=== PATIENT | female | born 1955 | race Two or more races ===

== ENCOUNTER 2018-03-12 23:26 | Inpatient (IN) | payer OTHER ==
[2018-03-12] MEDS ORDERED: NS 1,000 ML IV ONE (23:49)
[2018-03-12] MEDS ORDERED: ONDANSETRON 4 MG/2 ML VIAL IVP ONE (23:49)
[2018-03-12] MEDS ORDERED: fentaNYL 100 MCG/2 ML INJ IVP ONE (23:51)
--- NOTE | 2018-03-12 23:53 | EDPHY ---
General Time Seen by Provider: 03/12/18 23:49 Narrative: CLINICAL IMPRESSION: Small bowel obstruction ASSESSMENT/PLAN: Patient is a 62-year-old female with no significant medical history who presents to the emergency department with periumbilical pain, nausea, vomiting and diarrhea. Patient is afebrile, she is uncomfortable appearing however not toxic-appearing. Her abdomen was soft, nondistended with tenderness to palpation in the periumbilical region with mild voluntary guarding, well-healed midline incision inferior to the umbilicus with no appreciable hernia. CBC revealed leukocytosis of 12,000. Her vital signs were reviewed and there was no evidence of sepsis or serious bacterial illness. BMP grossly unremarkable. Lipase and hepatic panel grossly unremarkable. CT abdomen and pelvis revealed high-grade small-bowel obstruction with a small amount of free fluid in the pelvis. History and physical examination is most consistent with small-bowel obstruction. An NG tube was placed in the emergency department with approximately 200 cc of gastric contents removed, she was kept NPO and given IV fluids and pain control. On repeat examination the patient is more comfortable appearing, abdomen remained tender however no evidence of a surgical abdomen at this time. She remained hemodynamically stable. The patient will be admitted to the surgical service, I spoke directly with Dr. Childers who will be the admitting physician. DIFFERENTIAL DX: Abdominal pain including but not limited to appendicitis, cholecystitis, gastritis and urinary tract infection. ED COURSE: 2054: Case discussed with Dr. Bush CHIEF COMPLAINT: Abdominal pain, nausea, vomiting and diarrhea HPI: Patient is a 62-year-old female with no significant medical history and who takes no medications presents to the emergency department with intermittent and escalating иван umbilical abdominal pain, nausea, vomiting and diarrhea. Patient reports yesterday she started to develop some mid abdominal cramping, it has waxed and waned in intensity. Today she started to develop some associated nausea and emesis x3. She has felt chilled however no recorded fever. She also has a diarrhea, 4 episodes today without melena or hematochezia. Last episode of diarrhea just prior to arrival. Patient is status post remote lap helena, open appendectomy and open hysterectomy. Patient denies any chest pain, shortness of breath or hematemesis. She has no history of reflux. She denies any urinary symptoms to include dysuria, hematuria or increased frequency however does have a propensity to develop urinary tract infections. There has been no recent travel, she has been on no recent antibiotics. There are no recent sick contacts. Patient has never had a colonoscopy. PMH: Denies Pertinent Past Surgical History: Cholecystectomy, appendectomy, hysterectomy Family History: Not contributory Social History: Denies alcohol, drug use or cigarette smoking REVIEW OF SYSTEMS: All other systems negative Constitutional: Chills, decreased appetite. Eyes: No discharge, vision change ENT: No sore throat, congestion, ear pain. Cardiovascular: No chest pain, no palpitations. Respiratory: No cough, no shortness of breath. Gastrointestinal: Abdominal pain, nausea, vomiting and diarrhea. Genitourinary: No hematuria, dysuria, flank pain, pelvic pain. Musculoskeletal: No back pain, joint swelling, joint pain, myalgias. Skin: No rashes, color change. Neurological: No headache, dizziness, weakness. PHYSICAL EXAM: General Appearance: Patient is well-developed, she is very uncomfortable appearing however not toxic-appearing. HENT: Normocephalic, atraumatic. Bilateral external ears are normal. Bilateral tympanic membranes are normal with pearly vuong reflex. Nares are clear, mucosa is pink. Oropharynx is clear, mucosa mildly dry, uvula is midline. There is no tonsillar enlargement or exudate. The dentition is normal. Eyes: PERRLA, no acute vision change, nystagmus, swelling, discharge, pain or photosensitivity. Conjunctiva pink, no pallor or injection Neck: Supple, nontender, no lymphadenopathy, no midline pain, FROM, no meningismus. Respiratory: There are no retractions, lungs are clear to auscultation. Cardiac: Regular rate and rhythm, no murmurs or gallops. Gastrointestinal: Patient's abdomen is soft and nondistended. There is a well-healed incision inferior to the umbilicus into the suprapubic region with no specific associated tenderness to palpation, no appreciable hernia. Patient has tenderness to palpation in the generalized periumbilical region with mild voluntary guarding. Negative Rovsing's. Neurological: Alert and oriented x 3, CN 2-12 grossly intact, normal gait no ataxia, DTR's intact, normal sensation and strength Skin: Warm, dry, no rashes, no nodules on palpation. Musculoskeletal: Extremities are symmetrical, full range of motion, no tenderness, deformity, swelling, or erythema. Psychiatric: Patient is oriented X 3, there is no agitation. MEDICAL DECISION MAKING: Patient was seen independently. Secondary supervising physician at time of evaluation was Dr. Bush. Diagnosis: Small bowel obstruction. New, requires workup Summary: See Assessment and Plan for summary of ED visit Clinical lab tests: ordered / reviewed. Independent visualization of images, tracing, or specimens: Yes. Decision to obtain medical records or history from someone other than the patient: Yes, daughter Review / Summarize previous medical records: No Discussed patient with another provider: Yes, Dr. Bush, Dr. Childers. Patient Progress: Stable, admit. - Objective Vital Signs: Initial Vital Signs Temperature (C) 36.4 C 03/12/18 23:32 Heart Rate 86 03/12/18 23:32 Respiratory Rate 03/12/18 23:32 Blood Pressure 159/96 H 03/12/18 23:32 O2 Sat (%) 95 03/12/18 23:32 O2 Delivery Mode Room Air O2 (L/minute) 2 Allergies/Adverse Reactions: hydromorphone HCl [From Dilaudid] Allergy (Intermediate, Verified 10/09/12 09:27 ) Vomiting penicillin G [Penicillin G] Allergy (Intermediate, Verified 12/07/08 20:32) TACHYCARDIA, DIAPHORESIS Penicillins Allergy (Verified 09/25/14 01:24) Home Medications: Medication Instructions Recorded No Medications [No Meds] 10/08/12 Laboratory Results: Laboratory Results 03/12/18 23:40 03/12/18 23:40 03/12/18 03/12/18 23:40 23:40 WBC 11.88 10^3/uL H 10^3/uL (3.80-9.50) RBC 4.51 10^6/uL 10^6/uL (4.18-5.33) Hgb 14.5 g/dL g/dL (12.6-16.3) Hct 41.6 % % (38.0-47.0) MCV 92.2 fL fL (81.5-99.8) MCH 32.2 pg pg (27.9-34.1) MCHC 34.9 g/dL g/dL (32.4-36.7) RDW 13.1 % % (11.5-15.2) Plt Count 365 10^3/uL 10^3/uL (150-400) MPV 8.7 fL fL (8.7-11.7) Neut % (Auto) 76.7 % H % (39.3-74.2) Lymph % (Auto) 14.4 % L % (15.0-45.0) Wilkes % (Auto) 7.2 % % (4.5-13.0) Eos % (Auto) 1.1 % % (0.6-7.6) Baso % (Auto) 0.3 % % (0.3-1.7) Nucleat RBC Rel Count 0.0 % % (0.0-0.2) Absolute Neuts (auto) 9.12 10^3/uL H 10^3/uL (1.70-6.50) Absolute Lymphs (auto) 1.71 10^3/uL 10^3/uL (1.00-3.00) Absolute Monos (auto) 0.85 10^3/uL H 10^3/uL (0.30-0.80) Absolute Eos (auto) 0.13 10^3/uL 10^3/uL (0.03-0.40) Absolute Basos (auto) 0.04 10^3/uL 10^3/uL (0.02-0.10) Absolute Nucleated RBC 0.00 10^3/uL 10^3/uL (0-0.01) Immature Gran % 0.3 % % (0.0-1.1) Immature Gran # 0.03 10^3/uL 10^3/uL (0.00-0.10) Sodium 137 mEq/L mEq/L (135-145) Potassium 4.6 mEq/L mEq/L (3.5-5.2) Chloride 106 mEq/L mEq/L (97-110) Carbon Dioxide 22 mEq/l mEq/l (22-31) Anion Gap 9 mEq/L mEq/L (6-14) BUN 18 mg/dL mg/dL (7-23) Creatinine 1.0 mg/dL mg/dL (0.6-1.0) Estimated GFR 56 Glucose 138 mg/dL H mg/dL (70-100) Calcium 9.6 mg/dL mg/dL (8.5-10.4) Total Bilirubin 0.6 mg/dL mg/dL (0.1-1.4) Conjugated Bilirubin 0.2 mg/dL mg/dL (0.0-0.5) Unconjugated Bilirubin 0.4 mg/dL mg/dL (0.0-1.1) AST 20 IU/L IU/L (14-46) ALT 22 IU/L IU/L (9-52) Alkaline Phosphatase 78 IU/L IU/L (38-126) Total Protein 7.5 g/dL g/dL (6.3-8.2) Albumin 4.3 g/dL g/dL (3.5-5.0) Lipase 99 IU/L IU/L (23-300) Medications Given: Discontinued Medications Benzocaine (Hurricaine [place]) 1 g MM EDNOW ONE Stop: 03/13/18 01:03 Last Admin: 03/13/18 01:14 Dose: 1 spray Fentanyl (Sublimaze) 50 mcg IVP ONCE ONE Stop: 03/12/18 23:52 Last Admin: 03/13/18 00:02 Dose: 50 mcg Hydromorphone HCl (Dilaudid) 0.5 mg IVP EDNOW ONE Stop: 03/13/18 00:36 Last Admin: 03/13/18 00:37 Dose: 0.5 mg Sodium Chloride (Ns) 1,000 mls @ 0 mls/hr IV EDNOW ONE; Wide Open PRN Reason: Protocol Stop: 03/12/18 23:50 Last Admin: 03/13/18 00:02 Dose: 1,000 mls Lidocaine (Lidocaine 2% Viscous) 10 ml PO EDNOW ONE Stop: 03/13/18 01:04 Last Admin: 03/13/18 01:14 Dose: 10 ml Ondansetron HCl (Zofran) 4 mg IVP EDNOW ONE Stop: 03/12/18 23:50 Last Admin: 03/13/18 00:02 Dose: 4 mg Departure - Departure Disposition: [facility] Inpatient Acute Clinical Impression: Small bowel obstruction
[2018-03-12 23:58] LABS: PLATELET COUNT 365 10^3/uL (150-400)
[2018-03-13] MEDS ORDERED: IOPAMIDOL (ISOVUE 370) 100 ML BTL IV ONE (00:18)
[2018-03-13] MEDS ORDERED: HYDROmorphONE/DILAUDID 1 MG/ML INJ ONE (00:33)
[2018-03-13] MEDS ORDERED: HYDROmorphONE/DILAUDID 1 MG/ML INJ IVP ONE (00:35)
[2018-03-13] MEDS ORDERED: LIDOCAINE 2% JELLY 20 ML (UROJECT) ONE (00:53)
[2018-03-13] MEDS ORDERED: BENZOCAINE UNIT DOSE SPRAY HURRICAINE MM ONE (00:53)
[2018-03-13] MEDS ORDERED: BENZOCAINE 57 G CAN HURRICAINE MM ONE (01:02)
[2018-03-13] MEDS ORDERED: LIDOCAINE 2% VISCOUS 15 ML UDCUP PO ONE (01:03)
[2018-03-13] MEDS ORDERED: HYDROmorphONE/DILAUDID 2 MG/ML INJ IVP ONE (01:58)
[2018-03-13] MEDS ORDERED: GASTROVIEW 30 ML UNIT PO ONE ×2 (03:09→08:37)
[2018-03-13] MEDS: D5W NS W/ 20 KCl/L 1,000 ML IV SCH ×2 (03:12→10:43)
--- NOTE | 2018-03-13 03:14 | PDGENHP ---
History and Physical - Chief Complaint abdominal pain - History of Present Illness 62 y/o female with 2 day history of abdominal pain , diarrhea, nausea and vomiting. Her symptoms became worse this past evening and she came to the ED for evaluation. She had a CT scan that showed "bowel obstruction" and she was admitted for surgical consultation after an NGT was placed in the ED. She had similar symptoms just after Thanksgiving last year that were less severe and resolved spontaneously. History Information - Allergies/Home Medication List Allergies/Adverse Reactions: hydromorphone HCl [From Dilaudid] Allergy (Intermediate, Verified 10/09/12 09:27 ) Vomiting penicillin G [Penicillin G] Allergy (Intermediate, Verified 12/07/08 20:32) TACHYCARDIA, DIAPHORESIS Penicillins Allergy (Verified 09/25/14 01:24) Home Medications: No Medications [No Meds] 10/08/12 [Last Taken Unknown] I have personally reviewed and updated: family history, medical history, social history, surgical history - Past Medical History recurrent UTI Additional medical history: admitted twice in the past for pyelonephritis - Surgical History Reports: appendectomy (open as a child in [facility]), cancer surgery ( hysterectomy for cervical cancer), cholecystectomy (laparoscopic) - Family History Positive for: cancer (mother with cervical cancer) - Social History Smoking Status: Never smoked Alcohol Use: Rarely Drug Use: None Additional social history: here with daughter Review of Systems Review of Systems: Constitutional: Reports: recent illness Cardiac: Reports: no symptoms Respiratory: Reports: no symptoms Gastrointestinal: Reports: vomitting, abdominal pain, diarrhea, nausea Genitourinary: Reports: no symptoms Muscolosketal: Reports: no symptoms Physical Exam Physical Exam: Temp Pulse Resp BP Pulse Ox 36.8 C 61 16 129/94 H 93 03/13/18 02:44 03/13/18 02:44 03/13/18 02:44 03/13/18 02:44 03/13/18 02:44 O2 (L/minute) 2 Constitutional: uncomfortable (mildly anxious in pain) Eyes: anicteric sclera Ears, Nose, Mouth, Throat: moist mucous membranes, hearing normal Cardiovascular: regular rate and rhythym Respiratory: no respiratory distress, clear to auscultation Gastrointestinal: tenderness, distension, other (low midline incision without hernia, tympanitic to percussion, mild diffuse tenderness , hypoactive bowel sounds/No guarding/No rebound) Psychiatric: anxious Lymph, Heme, Immunologic: no cervical LAD, no supraclavicular LAD Lab Data & Imaging Review 03/12/18 23:40 03/12/18 23:40 WBC 11.88 10^3/uL (3.80-9.50) H 03/12/18 23:40 RBC 4.51 10^6/uL (4.18-5.33) 03/12/18 23:40 Hgb 14.5 g/dL (12.6-16.3) 03/12/18 23:40 Hct 41.6 % (38.0-47.0) 03/12/18 23:40 MCV 92.2 fL (81.5-99.8) 03/12/18 23:40 MCH 32.2 pg (27.9-34.1) 03/12/18 23:40 MCHC 34.9 g/dL (32.4-36.7) 03/12/18 23:40 RDW 13.1 % (11.5-15.2) 03/12/18 23:40 Plt Count 365 10^3/uL (150-400) 03/12/18 23:40 MPV 8.7 fL (8.7-11.7) 03/12/18 23:40 Neut % (Auto) 76.7 % (39.3-74.2) H 03/12/18 23:40 Lymph % (Auto) 14.4 % (15.0-45.0) L 03/12/18 23:40 Hyde % (Auto) 7.2 % (4.5-13.0) 03/12/18 23:40 Eos % (Auto) 1.1 % (0.6-7.6) 03/12/18 23:40 Baso % (Auto) 0.3 % (0.3-1.7) 03/12/18 23:40 Nucleat RBC Rel Count 0.0 % (0.0-0.2) 03/12/18 23:40 Absolute Neuts (auto) 9.12 10^3/uL (1.70-6.50) H 03/12/18 23:40 Absolute Lymphs (auto) 1.71 10^3/uL (1.00-3.00) 03/12/18 23:40 Absolute Monos (auto) 0.85 10^3/uL (0.30-0.80) H 03/12/18 23:40 Absolute Eos (auto) 0.13 10^3/uL (0.03-0.40) 03/12/18 23:40 Absolute Basos (auto) 0.04 10^3/uL (0.02-0.10) 03/12/18 23:40 Absolute Nucleated RBC 0.00 10^3/uL (0-0.01) 03/12/18 23:40 Immature Gran % 0.3 % (0.0-1.1) 03/12/18 23:40 Immature Gran # 0.03 10^3/uL (0.00-0.10) 03/12/18 23:40 Sodium 137 mEq/L (135-145) 03/12/18 23:40 Potassium 4.6 mEq/L (3.5-5.2) 03/12/18 23:40 Chloride 106 mEq/L (97-110) 03/12/18 23:40 Carbon Dioxide 22 mEq/l (22-31) 03/12/18 23:40 Anion Gap 9 mEq/L (6-14) 03/12/18 23:40 BUN 18 mg/dL (7-23) 03/12/18 23:40 Creatinine 1.0 mg/dL (0.6-1.0) 03/12/18 23:40 Estimated GFR 56 03/12/18 23:40 Glucose 138 mg/dL (70-100) H 03/12/18 23:40 Calcium 9.6 mg/dL (8.5-10.4) 03/12/18 23:40 Total Bilirubin 0.6 mg/dL (0.1-1.4) 03/12/18 23:40 Conjugated Bilirubin 0.2 mg/dL (0.0-0.5) 03/12/18 23:40 Unconjugated Bilirubin 0.4 mg/dL (0.0-1.1) 03/12/18 23:40 AST 20 IU/L (14-46) 03/12/18 23:40 ALT 22 IU/L (9-52) 03/12/18 23:40 Alkaline Phosphatase 78 IU/L (38-126) 03/12/18 23:40 Total Protein 7.5 g/dL (6.3-8.2) 03/12/18 23:40 Albumin 4.3 g/dL (3.5-5.0) 03/12/18 23:40 Lipase 99 IU/L (23-300) 03/12/18 23:40 Visualized and Interpreted imaging results: Yes Interpretation: reviewed CT: dilated loops of small bowel w/ gas and stool in decompressed colon, small amount free fluis/subhepatic clips from lap helena, surgically absent uterus. KUB shows tip of NGT curled in the cardia/pulled back several cm Assessment & Plan Assessment: Mrs. Neves presents clinically with an acute vomiting illness and abdominal pain. With the additional symptom of diarrhea for the past two days the most likely clinical diagnosis is gastroenteritis. The CT does show dilated loops of bowel which can be seen in either gastroenteritis or mechanical bowel obstruction. She does not have a surgical abdomen. Plan: NGT, comfort measures Gastrograffin via NGT/KUB in AM Ace Childers MD, FACS
[2018-03-13] MEDS ORDERED: PROMETHAZINE HCL 25 MG/ML INJ IVP PRN (03:15)
[2018-03-13] MEDS ORDERED: LORazepam 2 MG/ML INJ IVP PRN (03:28)
--- NOTE | 2018-03-13 08:15 | SOAPPROG ---
SOAP Progress Note Assessment/Plan: Assessment: gastroenteritis vs. ileus 3 hour KUB shows no progress of contrast out of stomach will repeat at noon, repeat cbc pending 03/13/18 08:14 Subjective: ongoing pain, no further emesis or diarrhea Objective: Vital Signs Temp Pulse Resp BP Pulse Ox 36.7 C 70 16 120/79 99 03/13/18 07:45 03/13/18 07:45 03/13/18 07:45 03/13/18 07:45 03/13/18 07:45 03/12/18 03/13/18 03/14/18 05:59 05:59 05:59 Intake Total 1498 Output Total 350 Balance 1148 Physical Exam - Physical Exam General Appearance: mild distress Respiratory: lungs clear, normal breath sounds Cardiac/Chest: regular rate, rhythm Abdomen: normal bowel sounds, soft, distended, other (diffuse mild tenderness with improved bowel sounds) Pelvic Exam: deferred Rectal: deferred Neuro/Psych: alert, normal mood/affect ICD10 Worksheet Patient Problems: Problems Problem Status Onset Small bowel obstruction Acute Pyelonephritis Acute
[2018-03-13 09:20] LABS: PLATELET COUNT 310 10^3/uL (150-400)
[2018-03-13] MEDS: ONDANSETRON 4 MG/2 ML VIAL IVP PRN (09:38)
--- NOTE | 2018-03-13 11:41 | PDMN ---
Medical Necessity Medical necessity: Pt meets inpt criteria per MD order and MCG M-210, Abdominal pain 2 days. 62 y/o presented w/abd pain, nausea, and vomiting and diarrhea. Abd CT suggests high grade sm bowel obstruction, though clinically patient presents with classic history for gastroenteritis. NPO, NGT, IVF, IV antiemetics , IV pain meds,contrast evaluation of bowel. anticipate>2MN for management of above.
--- NOTE | 2018-03-13 13:28 | ASMTCMCOM ---
CM Note CM Note Notes: Pt sleeping when CM entered the room; spoke with pt's brother. Pt lives independently with daughter and was admitted for small bowel obstruction, currently has NG tube and may need surgical intervention. Pt has a past medical history of recurrent UTIs and hysterectomy related to cervical cancer. No therapies ordered at this time. Discharge needs TBD as care progresses. CM to follow. D/C Plan: Date Signed: 03/13/2018 01:27 PM Electronically Signed By:Marianna De La Cruz
[2018-03-13 16:22] LABS: PLATELET COUNT 302 10^3/uL (150-400)
[2018-03-13] MEDS: oxyCODONE IR 5 MG TAB PO PRN ×2 (16:45→21:30)
--- NOTE | 2018-03-13 17:11 | GCON ---
DATE OF CONSULTATION: 03/13/2018 REASON FOR CONSULTATION: I was asked by Dr. Childers to see the patient in regard to her gastrointestinal issues. HISTORY OF PRESENT ILLNESS: This is a 62-year-old female, who is status post appendectomy as well as cholecystectomy, hysterectomy, and oophorectomy who presents with abdominal pain. This started 2 days before she presented to the ED as a mild abdominal pain. The following day, it progressed to significant nausea with emesis multiple times throughout the day. She also has had 4 episodes of diarrhea throughout this. Her diarrhea has been nonbloody. Her emesis has had small specks of blood in her more recent episodes. She describes a crampy abdominal pain which slowly builds and then lessons. She had symptoms like this once before which resolved with taking a medicine from [place]. She has not had any fevers, although she has had some shortness of breath associated with her emesis. She does not have any history of inflammatory bowel disease or other bowel disorders. She had an NG tube placed, which was removed after her abdominal XRays showed Gastrografin moving through to her colon. PAST MEDICAL/SURGICAL HISTORY: 1. History of pyelonephritis as well as renal stones. 2. Cervical cancer status post hysterectomy and oophorectomy 15 years ago. 3. Appendectomy. 4. Cholecystectomy. 5. Migraines. MEDICATIONS: Please see medication reconciliation. ALLERGIES: Penicillins as well as Dilaudid. FAMILY HISTORY: Negative for any inflammatory bowel disease. SOCIAL HISTORY: She does not drink alcohol. She does not smoke. REVIEW OF SYSTEMS: 10-point review of systems is conducted and is negative except per HPI. PHYSICAL EXAM: VITAL SIGNS: Blood pressure is 99/68, heart rate 68, respiration rate 18, saturating 98% on room air, temperature 36.8. GENERAL: The patient is a pleasant female who is resting and appears somewhat uncomfortable in bed during my interview. HEENT: Normocephalic, atraumatic. CARDIOVASCULAR: Regular rate and rhythm. No murmurs, rubs, or gallops. PULMONARY: Lungs clear to auscultation bilaterally. ABDOMEN: Shows her to be soft. She is tender to palpation most in the upper, middle, right and left quadrant areas. She has normal to hyperactive bowel sounds. There is no rebound or guarding tenderness. SKIN: Shows no rash. : No Mann. NEUROLOGIC: Shows her to be alert and oriented x3. She is moving all extremities. PSYCHIATRIC: Shows normal mood and affect. LABS: White count is normal. Hemoglobin is 12. Basic metabolic panel has been normal. LFTs are normal. Lipase is negative. DATA: 1. Discussed with Dr. Childers. We will consult. 2. Reviewed her abdominal CT as well as her abdominal x-rays with Gastrografin. Abdominal CT showed distended loops of bowel concerning for small bowel obstruction. Her upright abdominal x-rays with Gastrografin have shown passage in over approximately 4 hours of Gastrografin into her colon. IMPRESSION/PLAN: GI issues: Clinically she does not have a small bowel obstruction and passing Gastrografin to her colon makes this very unlikely. I more suspect that she has a gastroenteritis. Her abdomen is tender, but soft. Her vitals and labs are reassuring against something more catastrophic. Agree with GI PCR as has been ordered. I don't see any other reason for her to have an ileus. She has no history of inflammatory bowel disease, no significant thickening of her wall seen on imaging. No colon dilation to indicate large- bowel obstruction, either. Her pain is adequately managed for now, although she has intermittent spasms. Agree with ongoing monitoring as an inpatient given the degree of her symptoms. Thank you for involving Hospital Medicine in the care of the patient. We will continue to follow with you. /[id number]/MODL MTDD
[2018-03-14] MEDS: NS 1,000 ML IV SCH ×3 (01:06→17:42)
[2018-03-14] MEDS: oxyCODONE IR 5 MG TAB PO PRN ×4 (01:52→20:19)
[2018-03-14 05:43] LABS: PLATELET COUNT 256 10^3/uL (150-400)
[2018-03-14] MEDS: ACETAMINOPHEN 325 MG TAB PO PRN ×2 (10:46→17:37)
[2018-03-14] MEDS: ONDANSETRON 4 MG/2 ML VIAL IVP PRN (11:51)
--- NOTE | 2018-03-14 13:36 | HOSPPROG ---
Hospitalist Progress Note Assessment/Plan: 62 yo F w nausea, vomiting, diarrhea ?sbo: imaging reviewed/interpreted by me imaging s/o SBO but clinical scenario more s/o gastroenteritis see below gastroenteritis: sx s/o vial illness neg pcr noted benign exam nausea: precludes dc today continue trial of clears proph: scd's if staying past tomorrow dispo: inpt Subjective: case d/w dr de león Objective: Vital Signs Temp Pulse Resp BP Pulse Ox 36.6 C 76 16 106/64 93 03/14/18 11:21 03/14/18 11:21 03/14/18 11:21 03/14/18 11:21 03/14/18 11:21 Microbiology 03/13/18 20:45 Gastrointestinal Tract Panel (PCR) - Final Stool No Organism Detected By Pcr Laboratory Results 03/14/18 05:22 03/13/18 08:55 03/13/18 03/14/18 03/15/18 05:59 05:59 05:59 Intake Total 1498 4450 Output Total 350 1100 Balance 1148 3350 - Physical Exam Constitutional: no apparent distress, not in pain Eyes: PERRL, anicteric sclera Ears, Nose, Mouth, Throat: moist mucous membranes, hearing normal Cardiovascular: regular rate and rhythym, no murmur, rub, or gallop, No tachycardia Respiratory: no respiratory distress, no rales or rhonchi, other (scattered crackles at base) Gastrointestinal: distension, other (hypoactive bowel sounds) Genitourinary: No cool in urethra Skin: warm, normal color Musculoskeletal: full muscle strength, no muscle tenderness Neurologic: AAOx3, sensation intact bilaterally Psychiatric: interacting appropriately ICD10 Worksheet Patient Problems: Problems Problem Status Onset Small bowel obstruction Acute Pyelonephritis Acute
--- NOTE | 2018-03-14 13:56 | ASMTCMCOM ---
CM Note CM Note Notes: Nini met with pt this morning. She is only eligible for inpatient coverage/emergency Medicaid with no outpatient coverage. Pt lives with daughter who is at bedside. No therapies ordered. Pt will likely be discharged independently. CM available if needs arise. Plan: Independent Date Signed: 03/14/2018 01:56 PM Electronically Signed By:ROMULO Camargo
--- NOTE | 2018-03-14 14:18 | SOAPPROG ---
SOAP Progress Note Assessment/Plan: Assessment:abdominal pain, nausea, diarrhea gastroenteritis mostly likely viral with negative stool cultures Rec: supportive care, IV fluids, anticipate home in AM, careful hand washing patient has never had a colonoscopy and should be referred for outpatient follow up 03/13/18 08:14 03/14/18 14:15 Subjective: feeling a little better but still reporting pain at 5/10, nausea without emesis , loose stools Objective: Vital Signs Temp Pulse Resp BP Pulse Ox 36.6 C 76 16 106/64 93 03/14/18 11:21 03/14/18 11:21 03/14/18 11:21 03/14/18 11:21 03/14/18 11:21 Microbiology 03/13/18 20:45 Gastrointestinal Tract Panel (PCR) - Final Stool No Organism Detected By Pcr Laboratory Results 03/14/18 05:22 03/13/18 08:55 03/13/18 03/14/18 03/15/18 05:59 05:59 05:59 Intake Total 1498 4450 Output Total 350 1100 Balance 1148 3350 - Pending Discharge Pending Discharge Within 24 Hours: Yes Pending Discharge Date: 03/15/18 Pending Discharge Time: 11:00 Physical Exam - Physical Exam General Appearance: mild distress Cardiac/Chest: regular rate, rhythm Abdomen: soft, distended, other (hypoactive bowel sounds, mild diffuse tenderness without guarding) Pelvic Exam: deferred Rectal: deferred Neuro/Psych: alert, normal mood/affect ICD10 Worksheet Patient Problems: Problems Problem Status Onset Small bowel obstruction Acute Pyelonephritis Acute
[2018-03-15] MEDS: oxyCODONE IR 5 MG TAB PO PRN (01:34)
[2018-03-15] MEDS: NS 1,000 ML IV SCH (03:44)
[2018-03-15] MEDS: ACETAMINOPHEN 325 MG TAB PO PRN (03:48)
--- NOTE | 2018-03-15 08:10 | SOAPPROG ---
SOAP Progress Note Assessment/Plan: Assessment:abdominal pain, nausea, diarrhea gastroenteritis mostly likely viral with negative stool cultures mild anemia/no prior screening for colorectal CA Rec: slowly advance diet/home today patient has never had a colonoscopy and will be referred to Dr. Torre who was alterations tailor when she was admitted 03/13/18 08:14 03/14/18 14:15 03/15/18 08:09 Subjective: feeling better, tolerated clear liquids Objective: Vital Signs Temp Pulse Resp BP Pulse Ox 36.8 C 70 16 112/68 94 03/15/18 03:43 03/15/18 03:43 03/15/18 04:00 03/15/18 03:43 03/15/18 03:43 Microbiology 03/13/18 20:45 Gastrointestinal Tract Panel (PCR) - Final Stool No Organism Detected By Pcr Laboratory Results 03/14/18 05:22 03/13/18 08:55 03/14/18 03/15/18 03/16/18 05:59 05:59 05:59 Intake Total 4450 3265 Output Total 1100 2300 Balance 3350 965 Physical Exam - Physical Exam General Appearance: no apparent distress Abdomen: normal bowel sounds, non-tender, soft, distended Pelvic Exam: deferred Rectal: deferred Neuro/Psych: alert, normal mood/affect, oriented x 3 ICD10 Worksheet Patient Problems: Problems Problem Status Onset Anemia Acute Gastroenteritis Acute Small bowel obstruction Acute Pyelonephritis Acute
--- NOTE | 2018-03-15 09:44 | ASMTDCNOTE ---
Case Management Discharge Discharge Order Complete? Answers: Yes Patient to Obtain Answers: via Family Medications Transportation Arranged Answers: Family/Friends Discharge Comments Notes: Pt is being discharged independently. Family to transport. She reports no other concerns. Will follow-up as indicated. Date Signed: 03/15/2018 09:41 AM Electronically Signed By:ROMULO Camargo
--- NOTE | 2018-03-15 09:47 | ASDISCHSUM ---
Discharge Information Plan Status:Home with No Needs Medically Cleared to Leave:03/14/2018 Discharge Date:03/14/2018 CM D/C Disposition:Home, Routine, Self-Care ADT D/C Disposition: Projected Discharge Date:03/15/2018 12:00 AM Transportation at D/C:Family Discharge Delay Reason: Follow-Up Date:03/15/2018 12:00 AM Discharge Slot: Final Diagnosis: Placement Information Patient Contact Information Contact Name:ARISTIDES Relationship:Daughter Address:[address] City:[place] Alternate Phone: [facility]/Zip Code:[place] [address] Email: Financial Information Financial Class:Self-Pay Primary Plan Desc:SP UNINSURED Primary Plan Number:[id number] Secondary Plan Desc: Secondary Plan Number: Assessment Information [facility] CM Progress Note CM Note CM Note Notes: Pt sleeping when CM entered the room; spoke with pt's brother. Pt lives independently with daughter and was admitted for small bowel obstruction, currently has NG tube and may need surgical intervention. Pt has a past medical history of recurrent UTIs and hysterectomy related to cervical cancer. No therapies ordered at this time. Discharge needs TBD as care progresses. CM to follow. D/C Plan: Date Signed: 03/13/2018 01:27 PM Electronically Signed By:Marianna De La Cruz LACE LACDinorah Length of stay for Answers: 2 days current admission Acuity / Level of Answers: Yes Care: Did the patient have an inpatient admission? Comorbidities - select Answers: Other Notes: SBO, UTIs all that apply # of Emergency department Answers: 1-2 visits in the last 6 months Social determinants Answers: Lack of community resources and/or lack of social support (no pcp, lives alone, transportation, katelyn d) Score: 11 Date Signed: 03/15/2018 09:42 AM Electronically Signed By:ROMULO Camargo [facility] CM Progress Note CM Note CM Note Notes: Nini met with pt this morning. She is only eligible for inpatient coverage/emergency Medicaid with no outpatient coverage. Pt lives with daughter who is at bedside. No therapies ordered. Pt will likely be discharged independently. CM available if needs arise. Plan: Independent Date Signed: 03/14/2018 01:56 PM Electronically Signed By:ROMULO Camargo Case Management Discharge Plan Note Case Management Discharge Discharge Order Complete? Answers: Yes Patient to Obtain Answers: via Family Medications Transportation Arranged Answers: Family/Friends Discharge Comments Notes: Pt is being discharged independently. Family to transport. She reports no other concerns. Will follow-up as indicated. Date Signed: 03/15/2018 09:41 AM Electronically Signed By:ROMULO Camargo Intervention Information
[2018-03-15 11:16] VITALS: BP 139/89
--- NOTE | 2018-03-16 16:34 | GDS ---
DISCHARGE DIAGNOSES: 1. Gastroenteritis, resolving. 2. Anemia, unclear etiology. HOSPITAL COURSE: For details of admission history and physical, please see dictated summary. Briefl y, the patient is a 62-year-old female who presented to the emergency room shortly before midnight on 03/12/2018 and was seen by Dr. Luis Fernando Vazquez in the emergency department. She gave a history of nause a, vomiting, and diarrhea and had abdominal tenderness. A CT scan of the abdomen was performed and t radiologist felt that the images supported the diagnosis of bowel obstruction. She was admitted t o the surgical service for consultation and definitive management. Her clinical presentation in my opinion was inconsistent with small-bowel obstruction, even though alfonso had multiple prior abdominal surgeries. In particular, her diarrhea had persisted for 2 days prior to admission. Contrast was placed down the nasogastric tube and plain films approximately 6 hours l ater showed the contrast to be within the colon excluding any significant bowel obstruction. The pat ient did have an ileus. As this resolved, her diarrhea resumed. She had no further emesis. Her cheryl ogastric tube was removed and she was advanced from clear liquid to a soft diet and at the time of di scharge was afebrile, ambulatory and tolerating a soft bland diet. After hydration, her hematocrit d ropped from admission of 41.6 to a low of 31.5, and apparently she had some history of anemia in the past. Being 62 years of age, she had never undergone screening colonoscopy and I [facility] Shannon Torre MD, who was the GI doctor supervisor production when this patient was hospitaliz ed. The patient was afebrile, ambulatory and tolerating a soft diet at time of discharge. CONDITION AT TIME OF DISCHARGE: Improved. FOLLOWUP: Arranged with Dr. Torre for outpatient screening colonoscopy. /[id number]/MODL
== END 2018-03-15 12:40 | disposition home or self-care (01) | DRG 392 ==
LOC: F1N 03-13 02:31
PROVIDERS: ADMIT Surgery; ATTEND Surgery
DX: A08.4 Viral intestinal infection, unspecified (principal); K56.7 Ileus, unspecified; D64.9 Anemia, unspecified; Z88.0 Allergy status to penicillin
CPT/HCPCS: 96374; J1170; J2060; J2270; J2405; J2550; J3010; Q9967